=== PATIENT | female | born 1970 | race Caucasian/White ===

== ENCOUNTER 2018-07-13 20:09 | Emergency (ER) | payer BC, OTHER ==
--- NOTE | 2018-07-13 21:53 | RAD REPORT ---
EXAM DESCRIPTION: Angely Pa And Lat (2 Views)07/13/2018 8:56 pm CLINICAL HISTORY: Cough COMPARISON: None FINDINGS: Mild medial left lower lobe opacity is suspected. Right lung appears clear of acute infilt rate. Heart is normal size. Postsurgical changes involve spine IMPRESSION: Mild left lower lobe infiltrate is suspected
[2018-07-13 21:55] LABS: Absolute Monocytes 0.8 K/uL (0.1-1.3); Absolute Neutrophil 7.2 K/uL (1.8-8.0); Basophils % 0.6 % (0-1.3); Eosinophils % 1.9 % (0-4.4); Hematocrit 31.7 % (36.0-45.0); Lymphocytes % 32.4 % (15.3-44.8); Monocytes % 6.5 % (3.3-12.3); RBC Red Blood Cell Count 3.93 M/uL (3.86-4.86)
[2018-07-13 22:03] LABS: Protime INR 0.95
[2018-07-13 22:24] LABS: ALT/SGPT 65 U/L (12-78); AST/SGOT 25 U/L (15-37); Albumin 3.2 g/dL (3.4-5.0); Alkaline Phosphatase 91 U/L (45-117); BUN Blood Urea Nitrogen 20 mg/dL (7-18); Bicarbonate 26 mmol/L (21-32); Bilirubin Direct 0.1 mg/dL (0-0.2); Bilirubin Total 0.2 mg/dL (0.2-1.0); Glucose Level 89 mg/dL (74-106); Magnesium 2.2 mg/dL (1.8-2.4); NT PRO-BNP 130 pg/mL (<125); Potassium 4.1 mmol/L (3.5-5.1); Sodium Level 138 mmol/L (136-145); Troponin (Emerg Dept Use Only) < 0.02 ng/mL (0.0-0.045)
[2018-07-13 22:34] LABS: Blood Morphology Comment NOT SEEN (NOT SEEN); Platelet Estimate ADEQ; Urine White Blood Cell Casts OK
--- NOTE | 2018-07-13 23:44 | EDPHYS ---
Physician Documentation [facility] Name: Nallely Emanuel Age: 48 yrs Sex: Female : 1970 Arrival Date: 07/13/2018 Time: 20:14 Bed 4 Private MD: ED Physician Farzad Perez HPI: 07/13 21:00 This 48 yrs old Female presents to ER via Ambulatory with complaints of pm1 PNEUMONIA. 21:00 The patient or guardian reports cough, with no sputum. Onset: The symptoms/episode pm1 began/occurred 6 day(s) ago. Severity of symptoms: in the emergency department the symptoms have improved. Associated signs and symptoms: Pertinent negatives: chest pain, fever, nausea, rhinorrhea, sore throat, vomiting. The patient has been recently seen by a physician: the patient's primary care provider, with similar presenting complaints, and apparently given a diagnosis of pneumonia, lab tests were done, X-rays were performed. Patient with cough since last Thursday and seen at PCP/stand alone ER on Thursday. Was diagnosed with pneumonia and prescribed Levaquin. Patient with improvement in symptoms and was contacted today due to blood culture results. Told that she has strep pneumonia in the blood culture and was instructed to report to the ER for further evaluation and treatment. 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 - Social history:: Smoking status: Patient/guardian denies using tobacco. - Ebola Screening: : Patient negative for fever greater than or equal to 101.5 degrees Fahrenheit, and additional compatible Ebola Virus Disease symptoms Patient denies exposure to infectious person Patient denies travel to an Ebola-affected area in the 21 days before illness onset No symptoms or risks identified at this time. Vital Signs: 20:31 BP 163 / 105; Pulse 104; Resp 20; Temp 97.8; Pulse Ox 100% on R/A; Weight 90.72 kg; aj Height 5 ft. 1 in. (154.94 cm); 21:51 BP 153 / 96; Pulse 97; Resp 18; Pulse Ox 99% on R/A; tl2 23:07 BP 165 / 79; Pulse 103; Resp 18; Pulse Ox 100% on R/A; tl2 07/14 00:24 BP 157 / 86; Pulse 102; Resp 18; Temp 98.1; Pulse Ox 99% on R/A; ak1 07/13 20:31 Body Mass Index 37.79 (90.72 kg, 154.94 cm) aj MDM: 07/13 20:49 Patient medically screened. pm1 23:37 Data reviewed: vital signs. Data interpreted: Pulse oximetry: on room air is 100 %. pm1 Interpretation: normal. Counseling: I had a detailed discussion with the patient and/or guardian regarding: the historical points, exam findings, and any diagnostic results supporting the discharge/admit diagnosis, lab results, radiology results, the need for outpatient follow up, to return to the emergency department if symptoms worsen or persist or if there are any questions or concerns that arise at home. 07/13 21:11 Order name: Basic Metabolic Panel; Complete Time: 22:38 pm1 07/13 21:11 Order name: CBC with Diff; Complete Time: 22:38 pm1 07/13 21:11 Order name: LFT's; Complete Time: 22:38 pm1 07/13 21:11 Order name: Magnesium; Complete Time: 22:38 pm1 07/13 21:11 Order name: NT PRO-BNP; Complete Time: 22:38 pm1 07/13 21:11 Order name: PT-INR; Complete Time: 22:19 pm1 07/13 20:34 Order name: Chest Pa And Lat (2 Views) XRAY; Complete Time: 21:56 aj 07/13 21:11 Order name: Troponin (emerg Dept Use Only); Complete Time: 22:38 pm1 07/13 21:11 Order name: Procalcitonin; Complete Time: 22:43 pm1 07/13 21:11 Order name: Lactate; Complete Time: 22:38 pm1 07/13 21:11 Order name: Flu; Complete Time: 22:19 pm1 07/13 21:11 Order name: Blood Culture Adult (2) pm1 07/13 22:34 Order name: CBC Smear Scan; Complete Time: 22:38 EDMT 07/13 21:11 Order name: EKG; Complete Time: 21:11 pm1 07/13 21:11 Order name: Cardiac monitoring; Complete Time: 21:29 pm1 07/13 21:11 Order name: EKG - Nurse/Tech; Complete Time: 21:29 pm1 07/13 21:11 Order name: IV Saline Lock; Complete Time: 21:48 pm1 07/13 21:11 Order name: Labs collected and sent; Complete Time: 21:48 pm1 07/13 21:11 Order name: O2 Per Protocol; Complete Time: 21:21 pm1 07/13 21:11 Order name: O2 Sat Monitoring; Complete Time: 21:21 pm1 Administered Medications: 23:46 Drug: Rocephin 1 grams Route: IV; Rate: calculated rate; Site: right antecubital; tl2 07/14 00:25 Follow up: IV Status: Completed infusion ak1 Disposition: 01:07 Co-signature as Attending Physician, Farzad Perez MD. pkema Disposition: 07/13/18 23:43 Discharged to Home. Impression: Pneumonia due to Streptococcus pneumoniae. - Condition is Stable. - Discharge Instructions: Community-Acquired Pneumonia, Adult. - Prescriptions for Augmentin 875- 125 mg Oral Tablet - take 1 tablet by ORAL route every 12 hours for 10 days; 20 tablet. - Medication Reconciliation Form, Thank You Letter, Antibiotic Education form. - Follow up: Emergency Department; When: As needed; Reason: Worsening of condition. Follow up: Private Physician; When: 2 - 3 days; Reason: Recheck today's complaints, Continuance of care, Re-evaluation by your physician. - Problem is new. - Symptoms have improved. Signatures: Dispatcher [employer] EDMS Ingrid Pineda RN RN aj Lam, Pin, MD MD pkl Xena Vasquez RN RN ak1 Fito Lew NP CORPORATE INVESTIGATOR pm1 Yoly Simon RN RN tl2 Corrections: (The following items were deleted from the chart) 00:43 07/13 23:43 07/13/2018 23:43 Discharged to Home. Impression: Pneumonia due to ak1 Streptococcus pneumoniae. Condition is Stable. Forms are Medication Reconciliation Form, Thank You Letter, Antibiotic Education, Prescription Opioid Use. Follow up: Emergency Department; When: As needed; Reason: Worsening of condition. Follow up: Private Physician; When: 2 - 3 days; Reason: Recheck today's complaints, Continuance of care, Re-evaluation by your physician. Problem is new. Symptoms have improved. pm1
--- NOTE | 2018-07-13 23:44 | ER ---
Nurse's Notes [facility] Name: Nallely Emanuel Age: 48 yrs Sex: Female : 1970 Arrival Date: 07/13/2018 Time: 20:14 Bed 4 Private MD: Diagnosis: Pneumonia due to Streptococcus pneumoniae Presentation: 07/13 20:28 Presenting complaint: Patient states: DX with Pneumonia on Thursday. Contacted aj yesterday and informed "I had strep pneumonia and they told me to come to the hospital." Patient reports feeling better. Transition of care: patient was not received from another setting of care. Onset of symptoms was July 09, 2018. Risk Assessment: Do you want to hurt yourself or someone else? Patient reports no desire to harm self or others. Initial Sepsis Screen: Does the patient meet any 2 criteria? No. Patient's initial sepsis screen is negative. Does the patient have a suspected source of infection? No. Patient's initial sepsis screen is negative. Care prior to arrival: None. 20:28 Method Of Arrival: Ambulatory 20:28 Acuity: CARMINE 3 Triage Assessment: 20:31 General: Appears in no apparent distress. comfortable, Behavior is calm, cooperative, aj appropriate for age. Pain: Denies pain. Neuro: Level of Consciousness is awake, alert, obeys commands, Oriented to person, place, time, situation, Appropriate for age. Respiratory: Reports cough that is Airway is patent Respiratory effort is even, unlabored, Respiratory pattern is regular, symmetrical. Derm: Skin is intact, is healthy with good turgor, Skin is pink, warm \\T\\ dry. normal. 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 - Social history:: Smoking status: Patient/guardian denies using tobacco. - Ebola Screening: : Patient negative for fever greater than or equal to 101.5 degrees Fahrenheit, and additional compatible Ebola Virus Disease symptoms Patient denies exposure to infectious person Patient denies travel to an Ebola-affected area in the 21 days before illness onset No symptoms or risks identified at this time. Screenin:54 Abuse screen: Denies threats or abuse. Nutritional screening: No deficits noted. tl2 Tuberculosis screening: No symptoms or risk factors identified. Fall Risk None identified. Assessment: 21:49 General: Appears in no apparent distress. Behavior is calm, cooperative. Neuro: No ak1 deficits noted. Cardiovascular: No deficits noted. Respiratory: Reports shortness of breath cough that is pt stated dx pneumonia in [place] Thursday. pt received a call from [place] ER stating her blood cultures were positive. GI: No signs and/or symptoms were reported involving the gastrointestinal system. : No signs and/or symptoms were reported regarding the genitourinary system. EENT: No signs and/or symptoms were reported regarding the EENT system. Derm: No signs and/or symptoms reported regarding the dermatologic system. Musculoskeletal: No signs and/or symptoms reported regarding the musculoskeletal system. 07/14 00:24 Reassessment: Patient appears in no apparent distress at this time. No changes from ak1 previously documented assessment. Patient is alert, oriented x 3, equal unlabored respirations, skin warm/dry/pink. Patient states symptoms have improved. Vital Signs: 07/13 20:31 BP 163 / 105; Pulse 104; Resp 20; Temp 97.8; Pulse Ox 100% on R/A; Weight 90.72 kg; aj Height 5 ft. 1 in. (154.94 cm); 21:51 BP 153 / 96; Pulse 97; Resp 18; Pulse Ox 99% on R/A; tl2 23:07 BP 165 / 79; Pulse 103; Resp 18; Pulse Ox 100% on R/A; tl2 07/14 00:24 BP 157 / 86; Pulse 102; Resp 18; Temp 98.1; Pulse Ox 99% on R/A; ak1 07/13 20:31 Body Mass Index 37.79 (90.72 kg, 154.94 cm) ED Course: 07/13 20:14 Patient arrived in ED. es 20:30 Triage completed. aj 20:31 Arm band placed on right wrist. Patient placed in waiting room, Patient notified of patrick wait time. 20:45 Xena Vasquez, RN is Primary Nurse. ak1 20:49 Fito Lew NP is PHCP. pm1 20:49 Farzad Perez MD is Attending Physician. pm1 20:51 Patient moved to radiology via wheelchair. az 20:55 Chest Pa And Lat (2 Views) XRAY In Process Unspecified. EDMS 21:48 Inserted saline lock: 22 gauge in right antecubital area, using aseptic technique. ak1 Blood collected. 21:55 Patient has correct armband on for positive identification. Bed in low position. Call tl2 light in reach. Side rails up X 1. Adult w/ patient. 21:55 No provider procedures requiring assistance completed. ak1 07/14 00:24 IV discontinued, intact, bleeding controlled, No redness/swelling at site. Pressure ak1 dressing applied. Administered Medications: 07/13 23:46 Drug: Rocephin 1 grams Route: IV; Rate: calculated rate; Site: right antecubital; tl2 07/14 00:25 Follow up: IV Status: Completed infusion ak1 Outcome: 07/13 23:43 Discharge ordered by . pm1 07/14 00:23 Discharged to home ambulatory, with family. ak1 Condition: good Discharge instructions given to patient, family, Instructed on discharge instructions, follow up and referral plans. no drinking with medication, no driving heavy equipment, medication usage, Demonstrated understanding of instructions, follow-up care, medications, Prescriptions given X 1. 00:43 Patient left the ED. ak1 Signatures: Dispatcher [employer] Ingrid Trejo RN RN aj Salyer, Edna es Krenek, Amber, RN RN ak1 Fito Lew NP RELIABILITY MANAGER pm1 Yoly Simon RN RN tl2 Emely Solis pa
[2018-07-13] MEDS ORDERED: CEFTRIAXONE/SWI 1gm 1 GM/10 ML SYR ONE (23:52)
--- NOTE | 2018-07-14 14:38 | EKG ---
Test Date: 2018-07-13 Test Time: 21:25:27 Documentation Analyst: NADER MEASUREMENT RESULTS: Intervals: Rate: 96 WA: 186 QRSD: 92 QT: 346 QTc: 437 Randle: P: 32 WA: 186 QRS: 47 T: 41 INTERPRETIVE STATEMENTS: Normal sinus rhythm Normal ECG No previous ECG available for comparison Electronically Signed On 07-14-18 14:36:01 INSTALL AND REPAIR TECHNICIAN by Mc Means
== END 2018-07-14 00:43 | disposition home or self-care (01) ==
LOC: ER 20:09
DX: J13 Pneumonia due to Streptococcus pneumoniae (principal); E03.9 Hypothyroidism, unspecified; Z79.899 Other long term (current) drug therapy; Z79.84 Long term (current) use of oral hypoglycemic drugs
CPT/HCPCS: 36415; 71046; 80048; 80076; 83605; 83735; 83880; 84145; 84484; 85025; 85610; 87040; 87804; 93005; 96365; 99284; J0696